=== PATIENT | male | born 1995 | race Caucasian/White ===

== ENCOUNTER 2020-05-18 20:43 | Emergency (ER) | payer OTHER ==
[~2020-05-18] VITALS: Ht 170.2 cm; Wt 104.3 kg
[~2020-05-18 20:43] MED LIST: BENADRYL50 MG PO; ORASEP SPRAY30 ML MM; ZITHROMAX500 MG PO
[2020-05-19] MEDS ORDERED: INTESTINEX680 M1 PO (04:38)
== END 2020-05-19 04:55 | disposition home or self-care (01) ==
LOC: ER 20:43
DX: B34.9 Viral infection, unspecified (principal); Z20.828 Contact with and (suspected) exposure to other viral communicable diseases